=== PATIENT | male | born 1970 | race Caucasian/White ===

== ENCOUNTER 2025-05-24 09:22 | Emergency (ER) | payer OTHER ==
[~2025-05-24 09:22] MED LIST: Iopamidol 370 76% 100 ML VIAL ONE
[2025-05-24] MEDS ORDERED: Ondansetron PF 4 MG/2 ML Vial ONE (09:37)
[2025-05-24] MEDS ORDERED: Aspirin Chewable 81 MG TAB ONE (09:37)
[2025-05-24] MEDS ORDERED: Nitroglycerin 0.4 MG TAB 1 EACH ONE (09:37)
[2025-05-24 09:52] LABS: Glucose, Urine (Dipstick) Negative (Negative); Leukocyte Negative (Negative); Protein, Urine (Dipstick) Negative (Neg-Trace); Specific Gravity, Urine Greater/Equal 1.030 (1.005-1.030)
[2025-05-24 09:57] LABS: Hematocrit 53.5 % (42.0-52.0); Hemoglobin 16.8 g/dL (14.0-18.0); MDiff Complete? YES; Mean Corpuscular Hemoglobin 27.8 pg (27.0-31.0); Mean Corpuscular Volume 88.2 fl (78.0-98.0); Platelet Adequacy Comment Appears Adequate; Platelet Count 208 10x3/uL (130-400); Red Blood Cell (RBC) Count 6.07 mill/uL (4.70-6.10); White Blood Cell (WBC) Count 10.4 10x3/uL (4.8-10.8)
[2025-05-24 09:58] LABS: ALT (SGPT) 12 U/L (Less than 45); AST (SGOT) 20 U/L (11-34); Albumin 4.1 g/dL (3.1-4.5); Alkaline Phosphatase 60 U/L (40-110); Anion Gap 15 mmol/L (10-20); BUN (Urea Nitrogen) 21 mg/dL (8.4-25.7); Bilirubin, Total 0.5 mg/dL (0.3-1.2); Calc. Creatinine Clearance 0 mL/min (70-130); Calcium 9.4 mg/dL (7.8-10.44); Carbon Dioxide 25 mmol/L (22-29); Chloride 103 mmol/L (98-107); Globulin 2.6 g/dL (2.4-3.5); Glucose 131 mg/dL (70-105); Lipase 26 U/L (8-78); Potassium 3.1 mmol/L (3.5-5.1); Sodium 140 mmol/L (136-145)
[2025-05-24 09:59] LABS: Troponin I Less than 0.010 ng/mL (< 0.028)
[2025-05-24 09:59] LABS: Bacteria/HPF Rare-Few HPF (None Seen); CAUTI Indications for Culture Pelvic or flank pain; RBC/HPF 0-3 HPF (0-3); WBC/HPF 0-3 HPF (0-3)
[2025-05-24 09:59] LABS: Magnesium 1.9 mg/dL (1.6-2.6)
[2025-05-24 10:00] LABS: Urine Culture Reflex No No
[2025-05-24 10:04] LABS: Cocaine Metabolite Screen Negative (Negative); THC/Cannabinoid Screen Negative (Negative); Tricyclic Screen Negative (Negative)
[2025-05-24] MEDS ORDERED: Potassium Bicarbonate/Cit Ac 20 MEQ TAB ONE (10:55)
[2025-05-24] MEDS ORDERED: Orphenadrine Citrate 60 MG/2 ML VIAL ONE (10:55)
[2025-05-24] MEDS ORDERED: Ketorolac Tromethamine 30 MG (1 mL) VIAL ONE (10:55)
== END 2025-05-24 11:45 | disposition home or self-care (01) ==
LOC: MADERS 09:22
DX: R55 Syncope and collapse (principal); F41.1 Generalized anxiety disorder; E87.6 Hypokalemia; N18.9 Chronic kidney disease, unspecified; R10.A2 Flank pain, left side; R11.0 Nausea; G93.40 Encephalopathy, unspecified; R29.702 NIHSS score 2; Z79.899 Other long term (current) drug therapy
CPT/HCPCS: 70450; 71045; 71275; 74174; 80053; 80306; 81001; 83690; 83735; 83880; 84443; 84484; 85025; 93005; 94760; 96361; 96374; 96375; J1885; J2060; J2270; J2360; J2405; J7120; Q9967